=== PATIENT | male | born 1990 | race Caucasian/White ===

== ENCOUNTER 2020-05-18 13:48 | Outpatient (REF) | payer MEDICAID, SELFPAY ==
[2020-05-20 16:40] LABS: COVID-19 RT-PCR Result NEGATIVE (Negative)
== END 2020-05-18 14:08 ==
LOC: NCHCN 13:48
PROVIDERS: Visit Provider Nurse Practitioner Family
DX: Z20.828 Contact with and (suspected) exposure to other viral communicable diseases (principal)
CPT/HCPCS: U0003

== ENCOUNTER 2020-08-18 02:54 | Outpatient (CLI) | payer MEDICAID, SELFPAY ==
[2020-08-18 18:59] LABS: TSH (W/Ref FT4) 1.14 uIU/mL (0.36-3.74)
== END 2020-08-18 02:55 | disposition home or self-care (01) ==
LOC: LBO 02:54
PROVIDERS: PCP Nurse Practitioner Family; Visit Provider Family Medicine
DX: R03.0 Elevated blood-pressure reading, without diagnosis of hypertension (principal)
CPT/HCPCS: 36415; 80053; 85027; 86704; 86706; 86709; 87340; 84443; 87521

== ENCOUNTER 2020-10-05 03:12 | Outpatient (RCR) | payer MEDICAID, SELFPAY ==
[2020-10-05 16:36] LABS: MCH 30.3 pg (27.0-33.0); MCHC 32.6 % (32.0-36.0); MCV 92.9 fL (80-95); MPV 9.2 fL (8.0-11.0); Platelet Count 249 10^3/uL (130-400); RBC 4.95 10^6/uL (4.36-5.78); RDW 12.1 % (11.8-14.1); RDW-SD 42.1 fL; WBC 7.82 10^3/uL (4.4-10.8)
[2020-10-05 16:51] LABS: ALT 120 U/L (16-63); AST 49 U/L (15-37); Albumin 4.1 g/dL (3.4-5.0); Alkaline Phosphatase 87 U/L (46-116); Anion Gap 8.4 mmol/L (3-11); BUN 17 mg/dL (7-18); Bilirubin, Total 0.3 mg/dL (0.2-1.0); CO2 27.6 mmol/L (21.0-32.0); Calcium 9.1 mg/dL (8.5-10.1); Chloride 104 mmol/L (98-107); Glucose 94 mg/dL (74-106); Potassium 3.7 mmol/L (3.5-5.1); Sodium 140 mmol/L (136-145); Total Protein 7.9 g/dL (6.4-8.2)
[2020-10-09 09:07] LABS: Hepatitis B Surface Ab Positive (See Note)
[2020-10-09 09:13] LABS: Hepatitis B Surface Ag Negative (Negative)
[2020-10-09 09:48] LABS: Hep A Total Ab w Rflx IgM Negative (Negative)
== END 2020-10-13 23:59 | disposition home or self-care (01) ==
LOC: INF 03:12
PROVIDERS: PCP Nurse Practitioner Family; Visit Provider Family Medicine
DX: B19.20 Unspecified viral hepatitis C without hepatic coma (principal)
CPT/HCPCS: 36415; 80053; 85027; 86706; 86709; 87340; 86704; 87521

== ENCOUNTER 2021-01-10 02:59 | Outpatient (RCR) | payer MEDICAID, SELFPAY ==
[2021-01-11 11:51] LABS: HBs Antibody, Quant 48.5 mIU/mL (See Note); Hepatitis B Surface Ab Positive (See Note)
[2021-01-11 11:58] LABS: Hepatitis B Surface Ag Negative (Negative)
[2021-01-11 12:47] LABS: Hep A Total Ab w Rflx IgM Negative (Negative)
[2021-01-12 12:13] LABS: ALT 89 U/L (7-55); ActiTest Grade A1-A2; ActiTest Interpretation minimal activity; ActiTest Score 0.43; Alpha-2-Macroglobulin 152 mg/dL (100 - 280); Apoliprotein A1 130 mg/dL (>=120); Bilirubin, Total <0.2 mg/dL (<=1.2); FibroTest Interpretation no fibrosis; FibroTest Score 0.07; FibroTest Stage F0; GGT 30 U/L (8 - 61); Haptoglobin 83 mg/dL (30 - 200)
[2021-01-15 22:57] LABS: HCV Genotype 1a (Undetected)
== END 2021-01-13 23:59 | disposition home or self-care (01) ==
LOC: INF 02:59
PROVIDERS: PCP Nurse Practitioner Family; Visit Provider Family Medicine
DX: B19.20 Unspecified viral hepatitis C without hepatic coma (principal)
CPT/HCPCS: 36415; 81596; 86706; 86709; 87340; 87521

== ENCOUNTER 2023-01-16 18:18 | Outpatient (REF) | payer MEDICAID, SELFPAY ==
[2023-01-16 16:32] LABS: HCT 45.9 % (40.0-50.0); HGB 15.1 g/dL (13.5-17.5); MCH 30.8 pg (27.0-33.0); MCHC 32.9 % (32.0-36.0); MCV 94 fL (80-95); MPV 9.1 fL (8.0-11.0); Platelet Count 239 10^3/uL (130-400); RBC 4.91 10^6/uL (4.36-5.78); RDW 12.6 % (11.8-14.1); RDW-SD 43.4 fL; WBC 5.08 10^3/uL (4.4-10.8)
[2023-01-16 16:42] LABS: ALT 60 U/L (16-63); AST 29 U/L (15-37); Albumin 4.2 g/dL (3.4-5.0); Alkaline Phosphatase 58 U/L (46-116); Anion Gap 8.7 mmol/L (3-11); BUN 15 mg/dL (7-18); Bilirubin, Total 0.8 mg/dL (0.2-1.0); CO2 28.3 mmol/L (21.0-32.0); CREATININE 0.8 mg/dL (0.70-1.30); Calculated LDL 60 mg/dL (<100); Chloride 105 mmol/L (98-107); Cholesterol 129 mg/dL (<200); Glucose 92 mg/dL (74-106); HDL Cholesterol 64 mg/dL (40-60); Potassium 4.6 mmol/L (3.5-5.1); Sodium 142 mmol/L (136-145); Total Protein 7.2 g/dL (6.4-8.2); Triglyceride 29 mg/dL (<150)
[2023-01-16 17:57] LABS: Hemoglobin A1C 5.5 % (<5.7)
[2023-01-17 11:49] LABS: HBs Antibody, Quant 48.9 mIU/mL (See Note); Hepatitis B Surface Ab Positive (See Note)
[2023-01-17 12:00] LABS: Hepatitis B Surface Ag Negative (Negative)
[2023-01-17 12:34] LABS: Hep B Core Antibody Negative (Negative)
[2023-01-17 12:51] LABS: HIV-1/2 Ag & Ab Screen Negative (Negative)
[2023-01-17 13:00] LABS: Hep A Total Ab w Rflx IgM Negative (Negative)
[2023-01-17 14:12] LABS: HCV RNA Qualitative Detected (Undetected)
== END 2023-01-16 18:19 | disposition home or self-care (01) ==
LOC: NCHCN 18:18
PROVIDERS: PCP Nurse Practitioner Family; Visit Provider Family Medicine
DX: B19.20 Unspecified viral hepatitis C without hepatic coma (principal); Z01.84 Encounter for antibody response examination; Z11.4 Encounter for screening for human immunodeficiency virus [HIV]; Z13.1 Encounter for screening for diabetes mellitus; Z13.220 Encounter for screening for lipoid disorders
CPT/HCPCS: 80053; 80061; 85027; 86704; 86706; 86709; 87340; 87389; 87522; 83036

== ENCOUNTER 2023-06-20 11:38 | Outpatient (REF) | payer OTHER, MEDICAID, SELFPAY ==
[2023-06-20 16:23] LABS: Abs Immature Grans 0.03 10^3/uL (0.0-0.06); Absolute Basophil Count 0.05 10^3/uL (0.0-0.2); Absolute Eosinophil Count 0.12 10^3/uL (0.0-0.7); Absolute Lymphocyte Count 1.38 10^3/uL (1.2-3.4); Absolute Monocyte Count 0.52 10^3/uL (0.1-0.8); Absolute Neutrophil Count 4.81 10^3/uL (1.2-6.7); Basophils % 0.7; Eosinophils % 1.7; HCT 48.2 % (40.0-50.0); HGB 15.6 g/dL (13.5-17.5); Immature Grans % 0.4; MCH 30.5 pg (27.0-33.0); MCHC 32.4 % (32.0-36.0); MCV 94 fL (80-95); MPV 10.6 fL (8.0-11.0); Monocytes % 7.5; Neutrophils % 69.7; Platelet Count 199 10^3/uL (130-400); RBC 5.11 10^6/uL (4.36-5.78); RDW 12.6 % (11.8-14.1); RDW-SD 44.3 fL; WBC 6.91 10^3/uL (4.4-10.8)
[2023-06-20 17:03] LABS: ALT 41 U/L (16-63); AST 31 U/L (15-37); Albumin 4.4 g/dL (3.4-5.0); Alkaline Phosphatase 72 U/L (46-116); Anion Gap 6.5 mmol/L (3-11); BUN 19 mg/dL (7-18); Bilirubin, Total 0.6 mg/dL (0.2-1.0); CO2 29.5 mmol/L (21.0-32.0); CREATININE 0.8 mg/dL (0.70-1.30); Calcium 9.2 mg/dL (8.5-10.1); Chloride 104 mmol/L (98-107); Glucose 102 mg/dL (74-106); Potassium 4.3 mmol/L (3.5-5.1); Sodium 140 mmol/L (136-145); Total Protein 7.6 g/dL (6.4-8.2)
[2023-06-23 09:42] LABS: IgA 189 mg/dL (85-499)
[2023-06-23 10:49] LABS: Hepatitis C Ab w Rflx HCV PCR Reactive (Negative)
[2023-06-24 19:57] LABS: Tissue Transglutaminase Ab IgG 3.5 U/mL
[2023-06-25 13:28] LABS: HCV RNA Qualitative Undetected (Undetected)
== END 2023-06-20 11:39 | disposition home or self-care (01) ==
LOC: NCHCN 11:38
PROVIDERS: PCP Nurse Practitioner Family; Visit Provider Family Medicine
DX: B19.20 Unspecified viral hepatitis C without hepatic coma (principal); R10.9 Unspecified abdominal pain
CPT/HCPCS: 80053; 82784; 86364; 86803; 87522; 85025

== ENCOUNTER 2024-01-23 13:00 | Outpatient (REF) | payer OTHER, MEDICAID, SELFPAY ==
[2024-01-23 16:28] LABS: Anion Gap 6.1 mmol/L (3-11); BUN 17 mg/dL (7-18); CO2 29.9 mmol/L (21.0-32.0); CREATININE 0.8 mg/dL (0.70-1.30); Chloride 105 mmol/L (98-107); Estimated GFR 118.36 (mL/min/1.73m2); Glucose 100 mg/dL (74-106); Magnesium 1.9 mg/dL (1.8-2.4); Potassium 4.4 mmol/L (3.5-5.1); Sodium 141 mmol/L (136-145)
[2024-01-28 11:56] LABS: HCV RNA Qualitative Undetected (Undetected)
== END 2024-01-23 13:01 | disposition home or self-care (01) ==
LOC: NCHCN 13:00
PROVIDERS: PCP Nurse Practitioner Family; Visit Provider Student in an Organized Health Care Education/Training Program
DX: B19.20 Unspecified viral hepatitis C without hepatic coma (principal); R25.2 Cramp and spasm
CPT/HCPCS: 80048; 86803; 87522; 83735

== ENCOUNTER 2025-01-06 16:01 | Outpatient (REF) | payer SELFPAY ==
[2025-01-06 21:15] LABS: HCT 46.8 % (40.0-50.0); HGB 15.6 g/dL (13.5-17.5); MCH 30.0 pg (27.0-33.0); MCHC 33.3 % (32.0-36.0); MCV 90 fL (80-95); MPV 9.5 fL (8.0-11.0); Magnesium 2.1 mg/dL (1.8-2.4); Platelet Count 269 10^3/uL (130-400); RBC 5.20 10^6/uL (4.36-5.78); RDW 12.2 % (11.8-14.1); RDW-SD 40.2 fL; WBC 7.65 10^3/uL (4.4-10.8)
[2025-01-10 11:30] LABS: Lyme Ab w Rflx to Lyme Confirm Negative (Negative)
== END 2025-01-06 16:02 | disposition home or self-care (01) ==
LOC: NCHCN 16:01
PROVIDERS: PCP Nurse Practitioner Family; Visit Provider Physician Assistant
DX: E83.42 Hypomagnesemia (principal); M79.10 Myalgia, unspecified site; W57.XXXA Bitten or stung by nonvenomous insect and other nonvenomous arthropods, initial encounter
CPT/HCPCS: 85027; 83735; 86618